=== PATIENT | female | born 1940 | race Caucasian/White ===

== ENCOUNTER 2021-02-17 18:58 | Inpatient (IN) ==
--- NOTE | 2021-02-17 19:39 | Emergency Department Note ---
Impression & Plan Small bowel obstruction, Abdominal pain, Nausea & vomiting, Hypocalcemia ED Provider Note NAME: DAMIEN WESLEY AGE: 80 SEX: F : 1940 ARRIVES VIA: Walk-In INFORMANT: Patient, ED PROVIDER(S): Fotrunato De La Rosa MD Chief Complaint: Outpatient referral, abnormal CAT scan, abdominal HPI: Patient does present due to concern for the abnormal CAT scan completed in outpatient [facility] today. Patient's CAT scan showed interval development of small bowel dilatation proximal to lower ventral hernia consistent with partial SBO. Patient has had symptoms beginning since Wednesday with lower abdominal pain that has been rolling in and out. The patient states that it is fairly unchanged from prior. The patient denies any fevers or chills. The patient did have vomiting of the week but denies any blood in the vomit. The patient has not had a bowel movement approximate 3 days. Patient is a prior history of bowel obstruction and did require an NG. Patient does have prior history of cholecystectomy and hysterectomy. Patient is not taking anything for pain or nausea at home. Patient is vaccinated for Covid denies any alcohol tobacco or drug use. ROS: See HPI for pertinent positives and negatives. A total of 10 systems were reviewed and otherwise negative. Past medical history: See below Surgical history: See below Social history: See below Physical Exam: GENERAL: NAD, wearing glasses, wearing a mask, non-toxic. EYE EXAM: Normal conjunctiva. PERRL, no anisocoria and EOM's grossly intact w/o pain. NECK: Supple, no nuchal rigidity, no adenopathy, non-tender. No signs of meningismus. LUNGS: Clear to auscultation. Normal chest wall mechanics. HEART: NSR, no MRG. ABDOMEN: Abdomen soft, mild diffuse abdominal pain. Normo-active bowel sounds, no masses, no rebound or guarding. BACK: No CVA TTP. SKIN: No rashes and no bruising. UPPER EXTREMITIES: Upper extremities are grossly normal. LOWER EXTREMITIES: Grossly normal, no edema. NEURO EXAM: A&O x3, cranial nerves II-XII grossly intact, normal speech, moves all 4 extremities on command w/o issue. Differential diagnoses: Appendicitis, ovarian cyst, ovarian torsion, ectopic , TOA, PID, infections, diverticulitis, UTI, obstruction, mesenteric ischemia, aortic pathology, inflammatory bowel disease, renal colic, PUD, pancreatitis, biliary pathology, hernia, volvulus, constipation, as well as other pathologies. Course: Patient was seen and evaluated the bedside. Full history physical exam was performed. Imaging Studies: Outpatient CAT scan completed on 02/17/2021 at 1[facility]10 [facility] Impression: Interval dilatation of the small bowel proximal to the lower ventral hernia. This is consistent with a partial small bowel obstruction caused by ventral hernia. No other acute findings seen. Cardiac monitoring: An order was placed for continuous cardiac monitoring. The monitor shows a rate of 82 with sinus rhythm. MDM: Patient presents due to concern for abdominal pain. I did review the patient's CAT scan while the patient was still in triage. Blood work had already been ordered. Upon evaluation of the patient the patient was requesting pain and nausea medication. The patient has not vomited since yesterday. I did speak with the on-call general surgeon Dr. Bailey who is aware of the patient. I did s peak the on-call hospitalist and patient was admitted to the medicine service by Dr. Rincon. Past Med/Surg History Medical History Anxiety with depression Bowel obstruction Hyperlipidemia Hypertension Hypothyroidism (acquired) Surgical History H/O: hysterectomy Hx of cholecystectomy Social History Smoking Status: Never smoker Hx Alcohol Use: No Hx Substance Use: No Feels Safe at Home: Yes Immunizations: Vaccinated for COVID-19 Allergies Allergies Allergy/AdvReac Type Severity Reaction Status Date / Time No Known Allergies Allergy Verified 08/16/17 05:49 Home Meds Home Medications Medication Instructions Recorded Confirmed atorvastatin 10 mg tablet 10 mg PO DAILY 02/17/21 02/17/21 bupropion HCl 150 mg 24 hr tablet, 150 mg PO DAILY 02/17/21 02/17/21 extended release calcium carbonate 500 mg-vitamin 1 tab PO BID 02/17/21 02/17/21 D3 3.125 mcg (125 unit) tablet levothyroxine 75 mcg tablet 75 mcg PO DAILY 02/17/21 02/17/21 (Synthroid) lisinopril 10 mg tablet 10 mg PO DAILY 02/17/21 02/17/21 multivitamin 1 tab PO DAILY 02/17/21 02/17/21 multivitamin with minerals 1 tab PO DAILY 02/17/21 02/17/21 omega 0-irs-utg-fish oil 60 mg-90 1 cap PO BID 02/17/21 02/17/21 mg-500 mg capsule (Fish Oil) vitamins A,C,M-pnga-sujaoq 14,320 1 cap PO DAILY 02/17/21 02/17/21 unit-226 mg-200 unit capsule (PreserVision AREDS) zinc 50 mg tablet 50 mg PO DAILY 02/17/21 02/17/21 Results & Data (ED) Vital Signs Vital Signs - 24 hr 02/17/21 19:00 Temperature 36.4 C L Temperature Source Temporal Artery Scan Pulse Rate 79 Respiratory Rate 16 Blood Pressure 182/78 H Blood Pressure Mean 112 Blood Pressure Position Sitting Pulse Oximetry 97 Oxygen Delivery Method Room Air Sepsis Recent Fever Within 48 Hours No Sepsis New/Unexplained Change in Mental Status No Sepsis Action Taken by Nursing No Action Required Home Medications Current Medication List: was personally reviewed by me Laboratory Data Attestation: I reviewed the patient's lab results. Result diagrams: 02/17/21 20:05 02/17/21 20:05 Lab Results 02/17/21 02/17/21 02/17/21 Range/Units 20:05 20:05 20:05 WBC 9.12 (4.8-10.8) K/uL RBC 4.25 (4.2-5.4) M/uL Hgb 12.7 (12.0-16.0) g/dL Hct 38.9 (37-47) % MCV 91.5 (80-100) fL MCH 29.9 (25-34) pg MCHC 32.6 (32-36) g/dL RDW Std Deviation 45.6 (36.4-46.3) fL RDW Coeff of Lonnie 13.7 (11.5-14.5) % Plt Count 268 (130-400) K/uL MPV 9.3 (7.4-10.4) fL Immature Gran % (Auto) 0.2 % Neut % (Auto) 67.0 % Lymph % (Auto) 24.1 % Dickenson % (Auto) 7.2 % Eos % (Auto) 1.4 % Baso % (Auto) 0.1 % Neut # (Auto) 6.10 (1.4-6.5) K/uL Lymph # (Auto) 2.20 (1.2-3.4) K/uL Dickenson # (Auto) 0.66 H (0.11-0.59) K/uL Eos # (Auto) 0.13 (0-0.5) K/uL Baso # (Auto) 0.01 (0-0.2) K/uL Immature Gran # (Auto) 0.02 (0.00-0.02) K/uL Sodium 138 (136-145) mmol/L Potassium 4.3 (3.5-5.1) mmol/L Chloride 105 (98-107) mmol/L Carbon Dioxide 26 (21-32) mmol/L Anion Gap 6.0 (3-11) BUN 18 (7-18) mg/dl Creatinine 0.91 (0.6-1.2) mg/dl Est Cr Clr Drug Dosing 48.1 ml/min Est GFR ( Amer) 69.5 ml/min Est GFR (Non-Af Amer) 60.0 ml/min BUN/Creatinine Ratio 19.5 (10-20) Glucose 112 H (70-99) mg/dl Calcium 8.2 L (8.5-10.1) mg/dl Total Bilirubin 0.6 (0.2-1) mg/dl AST 32 (15-37) U/L ALT 69 (12-78) Alkaline Phosphatase 100 (45-117) U/L Total Protein 7.8 (6.4-8.2) gm/dl Albumin 3.5 (3.4-5.0) gm/dl Globulin 4.3 H (2.5-4.0) gm/dl Albumin/Globulin Ratio 0.8 L (0.9-2) Lipase 74 (73-393) U/L SARS-CoV-2, RNA, NAAT NEGATIVE (NEGATIVE) Administered Medications Discontinued Medications Sodium Chloride (Nss 1000ml) 500 mls @ 999 mls/hr IV .Q31M ONE Stop: 02/17/21 21:02 Last Admin: 02/17/21 20:51 Dose: 999 mls/hr Documented by: [id number] Morphine Sulfate (Morphine Sulfate 4 Mg/Ml 1 Ml Carp\Vial) 4 mg IV NOW STA Stop: 02/17/21 20:33 Last Admin: 02/17/21 20:50 Dose: 4 mg Documented by: [id number] Ondansetron HCl (Ondansetron Inj 2 Mg/Ml 2 Ml Vial) 4 mg IV NOW STA Stop: 02/17/21 20:33 Last Admin: 02/17/21 20:51 Dose: 4 mg Documented by: [id number] Discharge Plan Visit Data Chief Complaint: Abdominal Pain Stated Complaint: BOWEL OBSTRUCTION, SEVERE ABD PAIN, DR REFFERED ED Provider: Fortunato De La Rosa Discharge Problem: Small bowel obstruction, Abdominal pain, Nausea & vomiting, Hypocalcemia Patient Disposition: Admitted As Inpatient Forms Stand Alone Forms: [facility] Prescriptions Prescriptions: No Action multivitamin Tablet 1 tab PO DAILY RF: 0 atorvastatin 10 mg tablet 10 mg PO DAILY RF: 0 levothyroxine [Synthroid] 75 mcg tablet 75 mcg PO DAILY RF: 0 lisinopril 10 mg tablet 10 mg PO DAILY RF: 0 zinc 50 mg Tablet 50 mg PO DAILY RF: 0 Potassium Plus Tablet 1 tab PO DAILY RF: 0 bupropion HCl 150 mg tablet extended release 24 hr 150 mg PO DAILY RF: 0 PreserVision AREDS 14,320-226-200 grdd-oo-ogyx Capsule 1 cap PO DAILY RF: 0 calcium carbonate-vitamin D3 [Calcium 500 + D (D3)] 500 mg-3.125 mcg (125 unit) Tablet 1 tab PO BID RF: 0 omega 3-qlf-nkg-fish oil [Fish Oil] 60-90-500 mg Capsule 1 cap PO BID RF: 0 Referrals Referrals: Thanh Garrett MD [Outside Practitioners] -
[2021-02-17 20:24] LABS: Basophils # (auto) 0.01 K/uL (0-0.2); Basophils % (auto) 0.1 %; Eosinophils # (auto) 0.13 K/uL (0-0.5); Eosinophils % (auto) 1.4 %; Hematocrit (blood only) 38.9 % (37-47); Hemoglobin 12.7 g/dL (12.0-16.0); Immature Granulocytes # (auto) 0.02 K/uL (0.00-0.02); Immature Granulocytes % (auto) 0.2 %; Lymphocytes % (auto) 24.1 %; Mean Corpuscular Hemoglobin 29.9 pg (25-34); Mean Corpuscular Hgb Conc 32.6 g/dL (32-36); Mean Corpuscular Volume 91.5 fL (80-100); Mean Platelet Volume 9.3 fL (7.4-10.4); Monocytes # (auto) 0.66 K/uL (0.11-0.59); Monocytes % (auto) 7.2 %; Platelet Count 268 K/uL (130-400); RDW Coefficient of Variation 13.7 % (11.5-14.5); RDW Standard Deviation 45.6 fL (36.4-46.3); Red Blood Count 4.25 M/uL (4.2-5.4); White Blood Count 9.12 K/uL (4.8-10.8)
[2021-02-17] MEDS ORDERED: SODIUM CHLORIDE 0.9% 1000ML 500 ML IV ONE (20:32)
[2021-02-17] MEDS ORDERED: MoRPHine SULFATE 4 MG/ML 1 ML CARP\\VIAL IV STA ×2 (20:32→22:43)
[2021-02-17] MEDS ORDERED: ONDANSETRON INJ 2 MG/ML 2 ML VIAL IV STA (20:32)
[2021-02-17 20:41] LABS: Albumin Level 3.5 gm/dl (3.4-5.0); BUN Creatinine Ratio 19.5 (10-20); Calcium 8.2 mg/dl (8.5-10.1); Creatinine Clr Calc Pharmacy 48.1 ml/min; Est GFR (African American) 69.5 ml/min; Potassium 4.3 mmol/L (3.5-5.1)
[2021-02-17 20:44] LABS: Albumin Globulin Ratio 0.8 (0.9-2); Bilirubin,Total 0.6 mg/dl (0.2-1); Globulin 4.3 gm/dl (2.5-4.0); Total Protein 7.8 gm/dl (6.4-8.2)
[2021-02-17] MEDS ORDERED: hydrALAZINE HCL 20 MG/ML VIAL IV PRN (21:15)
--- NOTE | 2021-02-17 21:17 | History & Physical Report ---
Date of Service February 17, 2021 Assessment & Plan (1) Ventral hernia with bowel obstruction: Plan: Ventral hernia with bowel obstruction/history of previous SBO- NPO Zosyn 3.375 mg IV every 8 hours Zofran 4 mg IV every 6 hours as needed Famotidine 20 mg IV every 12 hours Acetaminophen 1 g IV every 8 hours as needed mild pain or fever Toradol 15 mg IV every 6 hours as needed moderate pain NSS + KCl 20 mEq at 80 mils per hour General surgery has been consulted by the ED and is aware the patient (2) Small bowel obstruction: Plan: See above (3) Abdominal pain: Plan: Primary presenting symptoms of SBO with abdominal pain and nausea and vomiting (4) Nausea & vomiting: Plan: See above (5) Hyperlipidemia: Plan: Hold atorvastatin (6) Anxiety with depression: Plan: Hold bupropion (7) Hypothyroidism (acquired): Plan: Hold levothyroxine (8) Hypertension: Plan: Hold lisinopril History of Present Illness Chief Complaint: The patient presents to the emergency department with abdominal pain, nausea and vomiting over the past 3 days, similar to previous SBO Primary Care Provider: Maria Del Rosario Chery The patient is a 80-year-old female with past medical history including small bowel obstruction, hyperlipidemia, anxiety with depression, hypothyroidism, and hypertension. She presents to the emergency department after 3 days of abdominal pain, nausea, vomiting. Her last bowel movement was 3 days ago. She reports her symptoms are similar to her previous small bowel obstruction that occurred about 3 to 4 years ago. Patient had a CT performed at [facility] earlier today, which showed a small bowel obstruction proximal to a lower ventral hernia consistent with partial SBO. Allergies Allergy/AdvReac Type Severity Reaction Status Date / Time No Known Allergies Allergy Verified 08/16/17 05:49 Home Medications Medication Instructions Recorded Confirmed Type atorvastatin 10 mg tablet 10 mg PO DAILY 02/17/21 02/17/21 History bupropion HCl 150 mg 24 hr tablet, 150 mg PO DAILY 02/17/21 02/17/21 History extended release calcium carbonate 500 mg-vitamin 1 tab PO BID 02/17/21 02/17/21 History D3 3.125 mcg (125 unit) tablet levothyroxine 75 mcg tablet 75 mcg PO DAILY 02/17/21 02/17/21 History (Synthroid) lisinopril 10 mg tablet 10 mg PO DAILY 02/17/21 02/17/21 History multivitamin 1 tab PO DAILY 02/17/21 02/17/21 History multivitamin with minerals 1 tab PO DAILY 02/17/21 02/17/21 History omega 0-clv-ywu-fish oil 60 mg-90 1 cap PO BID 02/17/21 02/17/21 History mg-500 mg capsule (Fish Oil) vitamins A,C,L-qpot-wdqjgz 14,320 1 cap PO DAILY 02/17/21 02/17/21 History unit-226 mg-200 unit capsule (PreserVision AREDS) zinc 50 mg tablet 50 mg PO DAILY 02/17/21 02/17/21 History Past Med/Surg History Medical History (Updated 02/17/21 @ 22:16 by Allen Chanel MD) Anxiety with depression Bowel obstruction Hyperlipidemia Hypertension Hypothyroidism (acquired) Surgical History H/O: hysterectomy Hx of cholecystectomy Social History (Updated 02/17/21 @ 20:40 by Fortunato De La Rosa MD) Smoking Status: Never smoker Hx Alcohol Use: No Hx Substance Use: No Feels Safe at Home: Yes Review of Systems Review of Systems: The patient denies chest pain, palpitations, shortness of breath, dyspnea on exertion, cough, lower extremity swelling, sore throat, fevers, chills, sweats, blood in urine or stool, dysuria, urinary frequency or urgency, lightheadedness, dizziness, headache, memory loss, loss of consciousness, rash, abnormal bruising or bleeding, imbalance, focal weakness, numbness or tingling in arms or legs, generalized arthralgias or myalgias, back or neck pain, or night sweats. The review of systems is otherwise negative other than for that already noted above, and at least 10 systems have been reviewed. Physical Exam Physical Exam: The patient is awake, alert and oriented 3, well developed and well nourished, normocephalic and atraumatic, lying in bed and in no acute distress after receiving IV morphine. HEENT--PERRL, EOMI, mucous membranes and oropharynx mildly dry. Neck--supple. No JVD. No bruits. Thyroid normal, trachea midline, no adenopathy. Heart--normal S1 and S2. No murmurs, rubs or gallops. Lungs--clear bilaterally, no respiratory distress, no accessory muscle use. Abdomen--normal bowel sounds. Nontender. Mildly distended. Extremities--no cyanosis or clubbing. No edema. Dermatologic--normal skin turgor, normal color, no abnormal lymph nodes, no rash. Neurologic--cranial nerves II through XII grossly intact. Rheumatologic--limited exam Psychiatric--normal affect. Results & Data Results & Data ([facility]) Vital Signs (Past 12 Hours) Vital Signs Temp Pulse Resp BP Pulse Ox 02/17/21 19:00 36.4 C L 79 16 182/78 H 97 Laboratory Results Laboratory Results WBC 9.12 K/uL (4.8-10.8) 02/17/21 20:05 RBC 4.25 M/uL (4.2-5.4) 02/17/21 20:05 Hgb 12.7 g/dL (12.0-16.0) 02/17/21 20:05 Hct 38.9 % (37-47) 02/17/21 20:05 MCV 91.5 fL (80-100) 02/17/21 20:05 MCH 29.9 pg (25-34) 02/17/21 20:05 MCHC 32.6 g/dL (32-36) 02/17/21 20:05 RDW Std Deviation 45.6 fL (36.4-46.3) 02/17/21 20:05 RDW Coeff of Lonnie 13.7 % (11.5-14.5) 02/17/21 20:05 Plt Count 268 K/uL (130-400) 02/17/21 20:05 MPV 9.3 fL (7.4-10.4) 02/17/21 20:05 Immature Gran % (Auto) 0.2 % 02/17/21 20:05 Neut % (Auto) 67.0 % 02/17/21 20:05 Lymph % (Auto) 24.1 % 02/17/21 20:05 Mingo % (Auto) 7.2 % 02/17/21 20:05 Eos % (Auto) 1.4 % 02/17/21 20:05 Baso % (Auto) 0.1 % 02/17/21 20:05 Neut # (Auto) 6.10 K/uL (1.4-6.5) 02/17/21 20:05 Lymph # (Auto) 2.20 K/uL (1.2-3.4) 02/17/21 20:05 Mingo # (Auto) 0.66 K/uL (0.11-0.59) H 02/17/21 20:05 Eos # (Auto) 0.13 K/uL (0-0.5) 02/17/21 20:05 Baso # (Auto) 0.01 K/uL (0-0.2) 02/17/21 20:05 Immature Gran # (Auto) 0.02 K/uL (0.00-0.02) 02/17/21 20:05 Sodium 138 mmol/L (136-145) 02/17/21 20:05 Potassium 4.3 mmol/L (3.5-5.1) 02/17/21 20:05 Chloride 105 mmol/L (98-107) 02/17/21 20:05 Carbon Dioxide 26 mmol/L (21-32) 02/17/21 20:05 Anion Gap 6.0 (3-11) 02/17/21 20:05 BUN 18 mg/dl (7-18) 02/17/21 20:05 Creatinine 0.91 mg/dl (0.6-1.2) 02/17/21 20:05 Est Cr Clr Drug Dosing 48.1 ml/min 02/17/21 20:05 Est GFR ( Amer) 69.5 ml/min 02/17/21 20:05 Est GFR (Non-Af Amer) 60.0 ml/min 02/17/21 20:05 BUN/Creatinine Ratio 19.5 (10-20) 02/17/21 20:05 Glucose 112 mg/dl (70-99) H 02/17/21 20:05 Calcium 8.2 mg/dl (8.5-10.1) L 02/17/21 20:05 Total Bilirubin 0.6 mg/dl (0.2-1) 02/17/21 20:05 AST 32 U/L (15-37) 02/17/21 20:05 ALT 69 (12-78) 02/17/21 20:05 Alkaline Phosphatase 100 U/L (45-117) 02/17/21 20:05 Total Protein 7.8 gm/dl (6.4-8.2) 02/17/21 20:05 Albumin 3.5 gm/dl (3.4-5.0) 02/17/21 20:05 Globulin 4.3 gm/dl (2.5-4.0) H 02/17/21 20:05 Albumin/Globulin Ratio 0.8 (0.9-2) L 02/17/21 20:05 Lipase 74 U/L (73-393) 02/17/21 20:05 SARS-CoV-2, RNA, NAAT NEGATIVE (NEGATIVE) 02/17/21 20:05 Code Status & VTE Plan Code Status Full code VTE Prophylaxis Plan VTE Prophylaxis will be ordered: Yes PG Care Time/CCT Total # of Minutes Spent Total Time Spent with Patient: Total time spent is greater than 50% in coordination of care (as documented) at patient's floor/unit and/or counseling patient: Coding Level of Care Code 14665 Initial Inpt Care Lvl 3 Diagnoses Ventral hernia with bowel obstruction K43.6 Small bowel obstruction K56.609 Abdominal pain R10.9 Nausea & vomiting R11.2 Hyperlipidemia E78.5 Anxiety with depression F41.8 Hypothyroidism (acquired) E03.9 Hypertension I10
--- NOTE | 2021-02-17 21:34 | Surgery Consultation ---
Date of Consultation February 17, 2021 Assessment & Plan (1) Small bowel obstruction: pt is a 80 year-old female who presents to ER with 3 days history abdominal pain with nausea and vomiting, IMP: SBO, ventral hernia, plan, I recommend to do open repair ventral hernia possible with mesh or laparotomy, D/w benefits, risks and alternatives of the surgery, the risks- infection, bleeding, injury other organs, hernia recurrence, complications relate to mesh, seroma, NH, DVT, stroke, , pt and her granddaughter understood, they agree with surgery, pt signed informed consent, I answered all questions, agree with hospitalist team admit pt to hospital conservative treatment, NPO, IV fluid, control pain, pt will go to OR in morning, (2) Ventral hernia with bowel obstruction: see above History of Present Illness Reason for Consultation: SBO, History of Present Illness Chief Complaint: Outpatient referral, abnormal CAT scan, abdominal HPI: Patient does present due to concern for the abnormal CAT scan completed in outpatient [facility] today. Patient's CAT scan showed interval development of small bowel dilatation proximal to lower ventral hernia consistent with partial SBO. Patient has had symptoms beginning since Wednesday with lower abdominal pain that has been rolling in and out. The patient states that it is fairly unchanged from prior. The patient denies any fevers or chills. The patient did have vomiting of the week but denies any blood in the vomit. The patient has not had a bowel movement approximate 3 days. Patient is a prior history of bowel obstruction and did require an NG. Patient does have prior history of cholecystectomy and hysterectomy. Patient is not taking anything for pain or nausea at home. Patient is vaccinated for Covid denies any alcohol tobacco or drug use. I ( Luly Bailey MD ) got a call for consult SBO, and ventral hernia, I reviewed pt's H/P, labs, with pt, pt developed ventral hernia about 2 years ago, the hernia is getting bigger, ROS: See HPI for pertinent positives and negatives. A total of 10 systems were reviewed and otherwise negative. Past medical history: See below Surgical history: See below Social history: See below Differential diagnoses: Appendicitis, ovarian cyst, ovarian torsion, ectopic , TOA, PID, infections, diverticulitis, UTI, obstruction, mesenteric ischemia, aortic pathology, inflammatory bowel disease, renal colic, PUD, pancreatitis, biliary pathology, hernia, volvulus, constipation, as well as other pathologies. Course: Patient was seen and evaluated the bedside. Full history physical exam was performed. Imaging Studies: Outpatient CAT [facility] Imp[facility]: Interval dilatation of the small bowel proximal to the lower ventral hernia. This is consistent with a partial small bowel obstruction caused by ventral hernia. No other acute findings seen. Cardiac monitoring: An order was placed for continuous cardiac monitoring. The monitor shows a rate of 82 with sinus rhythm. MDM: Patient presents due to concern for abdominal pain. I did review the patient's CAT scan while the patient was still in triage. Blood work had already been ordered. Upon evaluation of the patient the patient was requesting pain and nausea medication. The patient has not vomited since yesterday. I did speak with the on-call general surgeon Dr. Bailey who is aware of the patient. I did speak the on-call hospitalist and patient was admitted to the medicine service. Past Med/Surg History Medical History Bowel obstruction H/O: HTN (hypertension) Hypothyroid Surgical History H/O: hysterectomy Hx of cholecystectomy Social History(Updated 02/17/21 @ 20:40 by Fortunato De La Rosa MD) Smoking Status: Never smoker Hx Alcohol Use: No Hx Substance Use: No Feels Safe at Home: Yes Immunizations: Vaccinated for COVID-19 Allergies Allergies Allergy/AdvReac Type Severity Reaction Status Date / Time No Known Allergies Allergy Verified 08/16/17 05:49 Home Meds Home Medications Medication Instructions Recorded Confirmed Fish Oil (Rodney-3) 1 cap PO QAM #0 07/15/10 Propranolol (Inderal) 20 mg PO BID #0 07/15/10 CALCIUM 1 tab PO BID #0 08/04/17 LEVOTHYROXINE SODIUM (SYNTHROID) 75 mcg PO QAM #0 tab 08/04/17 LISINOPRIL (PRINIVIL) 5 mg PO QAM #0 tab 08/04/17 Multiple Vitamins W/ Minerals 1 tab PO QAM #0 08/04/17 (Centrum Silver 50+Women) F POTASSIUM 1 tab PO QAM #0 08/04/17 Previous Rx's Medication Instructions Recorded ACETAMINOPHEN (SB NON-ASPIRIN 1,000 mg PO Q8H 14 Days #84 tab 08/18/17 EXTRA STRE) Aspirin (Aspirin EC Low Dose) 81 mg PO BID 30 Days #0 08/18/17 Celecoxib (Celebrex) 200 mg PO BID #60 cap 08/18/17 ONDANSETRON HCL (ZOFRAN) 8 mg PO TID PRN #20 tab 08/18/17 Oxycodone HCl 5 - 10 mg PO Q4H PRN #60 tab 08/18/17 Senna (Senokot) 17.2 mg PO HS #30 tab 08/18/17 Results & Data (ED) Vital Signs Vital Signs - 24 hr 02/17/21 19:00 Temperature 36.4 C L Temperature Source Temporal Artery Scan Pulse Rate 79 Respiratory Rate 16 Blood Pressure 182/78 H Blood Pressure Mean 112 Blood Pressure Position Sitting Pulse Oximetry 97 Oxygen Delivery Method Room Air Sepsis Recent Fever Within 48 Hours No Sepsis New/Unexplained Change in Mental Status No Sepsis Action Taken by Nursing No Action Required Home Medications Current Medication List: was personally reviewed by me Laboratory Data Attestation: I reviewed the patient's lab results. Result diagrams: 02/17/21 20:05 02/17/21 20:05 Lab Results 02/17/21 02/17/21 02/17/21 Range/Units 20:05 20:05 20:05 WBC 9.12 (4.8-10.8) K/uL RBC 4.25 (4.2-5.4) M/uL Hgb 12.7 (12.0-16.0) g/dL Hct 38.9 (37-47) % MCV 91.5 (80-100) fL MCH 29.9 (25-34) pg MCHC 32.6 (32-36) g/dL RDW Std Deviation 45.6 (36.4-46.3) fL RDW Coeff of VarB 13.7 (11.5-14.5) % Plt Count 268 (130-400) K/uL MPV 9.3 (7.4-10.4) fL Immature Gran % (Auto) 0.2 % Neut % (Auto) 67.0 % Lymph % (Auto) 24.1 % [place] % (Auto) 7.2 % Eos % (Auto) 1.4 % Baso % (Auto) 0.1 % Neut # (Auto) 6.10 (1.4-6.5) K/uL Lymph # (Auto) 2.20 (1.2-3.4) K/uL [place] # (Auto) 0.66 H (0.11-0.59) K/uL Eos # (Auto) 0.13 (0-0.5) K/uL Baso # (Auto) 0.01 (0-0.2) K/uL Immature Gran # (Auto) 0.02 (0.00-0.02) K/uL Sodium 138 (136-145) mmol/L Potassium 4.3 (3.5-5.1) mmol/L Chloride 105 (98-107) mmol/L Carbon Dioxide 26 (21-32) mmol/L Anion Gap 6.0 (3-11) BUN 18 (7-18) mg/dl Creatinine 0.91 (0.6-1.2) mg/dl Est Cr Clr Drug Dosing 48.1 ml/min Est GFR ( Amer) 69.5 ml/min Est GFR (Non-Af Amer) 60.0 ml/min BUN/Creatinine Ratio 19.5 (10-20) Glucose 112 H (70-99) mg/dl Calcium 8.2 L (8.5-10.1) mg/dl Total Bilirubin 0.6 (0.2-1) mg/dl AST 32 (15-37) U/L ALT 69 (12-78) Alkaline Phosphatase 100 (45-117) U/L Total Protein 7.8 (6.4-8.2) gm/dl Albumin 3.5 (3.4-5.0) gm/dl Globulin 4.3 H (2.5-4.0) gm/dl Albumin/Globulin Ratio 0.8 L (0.9-2) Lipase 74 (73-393) U/L SARS-CoV-2, RNA, NAAT NEGATIVE (NEGATIVE) Allergies Allergy/AdvReac Type Severity Reaction Status Date / Time No Known Allergies Allergy Verified 08/16/17 05:49 Home Medications Medication Instructions Recorded Confirmed Type atorvastatin 10 mg tablet 10 mg PO DAILY 02/17/21 02/17/21 History bupropion HCl 150 mg 24 hr tablet, 150 mg PO DAILY 02/17/21 02/17/21 History extended release calcium carbonate 500 mg-vitamin 1 tab PO BID 02/17/21 02/17/21 History D3 3.125 mcg (125 unit) tablet levothyroxine 75 mcg tablet 75 mcg PO DAILY 02/17/21 02/17/21 History (Synthroid) lisinopril 10 mg tablet 10 mg PO DAILY 02/17/21 02/17/21 History multivitamin 1 tab PO DAILY 02/17/21 02/17/21 History multivitamin with minerals 1 tab PO DAILY 02/17/21 02/17/21 History omega 7-bva-mwr-fish oil 60 mg-90 1 cap PO BID 02/17/21 02/17/21 History mg-500 mg capsule (Fish Oil) vitamins A,C,Z-gltn-vucklj 14,320 1 cap PO DAILY 02/17/21 02/17/21 History unit-226 mg-200 unit capsule (PreserVision AREDS) zinc 50 mg tablet 50 mg PO DAILY 02/17/21 02/17/21 History Patient History Medical History Bowel obstruction H/O: HTN (hypertension) Hypothyroid Surgical History H/O: hysterectomy Hx of cholecystectomy Social History (Updated 02/17/21 @ 20:40 by Fortunato De La Rosa MD) Smoking Status: Never smoker Hx Alcohol Use: No Hx Substance Use: No Feels Safe at Home: Yes Physical Exam Constitutional: WD/WN, vitals as above Eyes: PERRL, conjunctivae normal, anicteric sclerae ENMT: external ear and nose normal, oropharynx normal Neck: trachea midline, no thyromegaly Respiratory: normal respiratory effort, lungs clear to auscultation Cardiovascular: RRR, no murmur, no edema Gastrointestinal (Abdomen): soft, tenderness at ventral hernia site at just below umbilical area, partial reducible, no rebound pain, middle line scar, Bs +. no distend, Musculoskeletal: no cyanosis or clubbing, extremities motor strength 5/5 Neurologic: patellar DTR's 2+ bilat, sensation intact Psychiatric: A+Ox3, euthymic affect Results & Data ([place]) Vital Signs (Past 12 Hours) Vital Signs Temp Pulse Resp BP Pulse Ox 02/17/21 19:00 36.4 C L 79 16 182/78 H 97
[2021-02-17] MEDS ORDERED: FAMOTIDINE 20MG/5ML IV PUSH IV STA (22:44)
[2021-02-17] MEDS ORDERED: ACETAMINOPHEN 1,000 MG/100 ML VIAL IV PRN (22:44)
[2021-02-17] MEDS: KETOROLAC TROMETHAMINE 15 MG/ML VIAL IV PRN (22:59)
[2021-02-18] MEDS ORDERED: ACETAMINOPHEN 1,000 MG/100 ML VIAL IV PRN (00:55)
[2021-02-18] MEDS ORDERED: LORazepam 0.5 MG/1 ML VIAL IV PRN (00:55)
[2021-02-18] MEDS ORDERED: PIPERACILL/TAZOBAC CONSULT ACTIVE PRN (00:55)
[2021-02-18] MEDS ORDERED: KETOROLAC TROMETHAMINE 15 MG/ML VIAL IV PRN (00:55)
[2021-02-18] MEDS: ONDANSETRON INJ 2 MG/ML 2 ML VIAL IV PRN ×2 (01:17→13:37)
[2021-02-18] MEDS ORDERED: PIPERACILLIN/TAZOBACTAM 4.5 GM in DEXTROSE 5% 100 ML IV ONE (01:30)
[2021-02-18] MEDS: NSS + 20MEQ KCL 20 MEQ/1,000 ML BAG IV SCH ×2 (01:37→13:48)
[2021-02-18] MEDS ORDERED: PIPERACILLIN/TAZOBACTAM 3.375 GM in DEXTROSE 5% 100 ML IV SCH (06:00)
--- NOTE | 2021-02-18 06:44 | Anesthesiology Consultation ---
Date of Service February 18, 2021 Assessment & Plan Chart Review Chart Review: Acceptable Risk for Surgery and Patient NOT seen in Pre Admission Testing History Surgery Operation Date: 02/18/21 11:40 Proposed Procedures p Ventral Hernia Repair - Luly Bailey MD Height/Weight Height: 5 ft 2 in Weight: 76 kg Allergies Allergy/AdvReac Type Severity Reaction Status Date / Time No Known Allergies Allergy Verified 08/16/17 05:49 Medications Home Medications Medication Instructions Recorded Confirmed Last Taken atorvastatin 10 mg tablet 10 mg PO DAILY 02/17/21 02/17/21 Unknown bupropion HCl 150 mg 24 hr tablet, 150 mg PO DAILY 02/17/21 02/17/21 Unknown extended release calcium carbonate 500 mg-vitamin 1 tab PO BID 02/17/21 02/17/21 Unknown D3 3.125 mcg (125 unit) tablet levothyroxine 75 mcg tablet 75 mcg PO DAILY 02/17/21 02/17/21 Unknown (Synthroid) lisinopril 10 mg tablet 10 mg PO DAILY 02/17/21 02/17/21 Unknown multivitamin 1 tab PO DAILY 02/17/21 02/17/21 Unknown multivitamin with minerals 1 tab PO DAILY 02/17/21 02/17/21 Unknown omega 1-naz-zsn-fish oil 60 mg-90 1 cap PO BID 02/17/21 02/17/21 Unknown mg-500 mg capsule (Fish Oil) vitamins A,C,V-urub-cyywtt 14,320 1 cap PO DAILY 02/17/21 02/17/21 Unknown unit-226 mg-200 unit capsule (PreserVision AREDS) zinc 50 mg tablet 50 mg PO DAILY 02/17/21 02/17/21 Unknown Active Medications Generic Name Dose Route Start Last Admin Trade Name Freq PRN Reason Stop Dose Admin Acetaminophen 1,000 mg in 100 mls @ 400 mls/hr 02/17/21 22:44 02/17/21 23:13 Ofirmev IV 02/20/21 22:43 Infused Q8H PRN Infusion Pain or Fever Piperacillin Sod/Tazobactam 115 mls @ 28.75 mls/hr 02/18/21 06:00 02/18/21 06:01 Sod 3.375 gm/ Dextrose IV 02/28/21 05:59 28.8 mls/hr Q8H CIARA Administration Protocol Potassium Chloride/Sodium Chloride 20 meq in 1,000 mls @ 80 mls/hr 02/18/21 01:30 02/18/21 02:50 Normal Saline W/20 Meq Kcl IV 03/20/21 01:29 80 mls/hr .[id number] CIARA Infusion Ketorolac Tromethamine 15 mg 02/17/21 22:44 02/17/21 22:59 Ketorolac Tromethamine 15 Mg/Ml Vial IV 02/22/21 22:43 15 mg Q6H PRN Administration Mild Pain Ondansetron HCl 4 mg 02/18/21 00:55 02/18/21 01:17 Ondansetron Inj 2 Mg/Ml 2 Ml Vial IV 03/20/21 00:54 4 mg Q6H PRN Administration Nausea Past Medical History Medical History Anxiety with depression Bowel obstruction Hyperlipidemia Hypertension Hypothyroidism (acquired) Past Surgical History Surgical History H/O: hysterectomy Hx of cholecystectomy Social History Smoking Status: Never smoker Hx Alcohol Use: No Hx Substance Use: No Physical Exam Vital Signs Last Vital Signs Temp 36.7 C 02/18/21 01:30 Pulse 94 H 02/18/21 01:30 Resp 18 02/18/21 01:30 BP 146/81 H 02/18/21 01:30 Pulse Ox 97 02/18/21 01:30 Testing Laboratory Results 02/17/21 20:05 02/17/21 20:05
[2021-02-18 07:57] LABS: Eosinophils # (auto) 0.09 K/uL (0-0.5); Eosinophils % (auto) 1.8 %; Hematocrit (blood only) 38.3 % (37-47); Hemoglobin 12.3 g/dL (12.0-16.0); Immature Granulocytes # (auto) 0.01 K/uL (0.00-0.02); Immature Granulocytes % (auto) 0.2 %; Lymphocytes # (auto) 0.66 K/uL (1.2-3.4); Lymphocytes % (auto) 13.5 %; Mean Corpuscular Hemoglobin 29.6 pg (25-34); Mean Corpuscular Hgb Conc 32.1 g/dL (32-36); Mean Corpuscular Volume 92.3 fL (80-100); Mean Platelet Volume 9.2 fL (7.4-10.4); Monocytes # (auto) 0.43 K/uL (0.11-0.59); Monocytes % (auto) 8.8 %; Neutrophils # (auto) 3.69 K/uL (1.4-6.5); Neutrophils % (auto) 75.7 %; Platelet Count 222 K/uL (130-400); RDW Coefficient of Variation 13.8 % (11.5-14.5); RDW Standard Deviation 47.2 fL (36.4-46.3); Red Blood Count 4.15 M/uL (4.2-5.4); White Blood Count 4.88 K/uL (4.8-10.8)
[2021-02-18 08:36] LABS: Albumin Level 2.9 gm/dl (3.4-5.0); BUN Creatinine Ratio 20.9 (10-20); Calcium 8.4 mg/dl (8.5-10.1); Est GFR (African American) 62.8 ml/min; Est GFR (Non-African American) 54.2 ml/min; Potassium 4.4 mmol/L (3.5-5.1)
[2021-02-18 08:48] LABS: Albumin Globulin Ratio 0.7 (0.9-2); Globulin 4.1 gm/dl (2.5-4.0)
[2021-02-18 08:50] LABS: Bilirubin,Total 1.5 mg/dl (0.2-1)
[2021-02-18] MEDS ORDERED: FAMOTIDINE 20 MG in SYRINGE 3 ML IV SCH (09:00)
--- NOTE | 2021-02-18 09:44 | History & Physical Bridge Note ---
Date of Service February 18, 2021 History & Physical Bridge Note I have examined the patient, reviewed the History & Physical and in the interval since the performance of the History & Physical I have noted the following changes of clinical significance: no changes noted
[2021-02-18] MEDS ORDERED: ceFAZolin 2000MG 2,000 MG/15 ML SYR IV STA (09:51)
[2021-02-18] MEDS ORDERED: fentaNYL citrate 100 MCG/2 ML VIAL ONE (10:25)
[2021-02-18] MEDS ORDERED: DEXAMETHASONE SOD INJ 4 MG/ML VIAL ONE (10:26)
[2021-02-18] MEDS ORDERED: ONDANSETRON INJ 2 MG/ML 2 ML VIAL ONE (10:26)
[2021-02-18] MEDS ORDERED: PROPOFOL IV EMULSION 10 MG/ML 20 ML VIAL IV ONE (10:26)
[2021-02-18] MEDS ORDERED: LIDOCAINE 2% 2 ML VIAL/AMP(20MG/ML) INFIL ONE (10:26)
[2021-02-18] MEDS ORDERED: LIDOCAINE 1% LOCAL 20 ML VIAL ONE (10:34)
[2021-02-18] MEDS ORDERED: BUPIVACAINE 0.5 % 5 MG/1 ML MPF 30ML VIAL ONE (10:34)
[2021-02-18] MEDS ORDERED: BACITRACIN OINT 15 GM TUBE ONE (10:37)
[2021-02-18] MEDS ORDERED: ATROPINE SULFATE 0.1 MG/ML 10ML SYR IV PRN (10:44)
[2021-02-18] MEDS ORDERED: ePHEDrine sulfate 50 MG/ML AMP IV PRN (10:44)
[2021-02-18] MEDS ORDERED: ONDANSETRON INJ 2 MG/ML 2 ML VIAL IV PRN (10:44)
[2021-02-18] MEDS ORDERED: HYDROmorphone INJ 2 MG/ML SYR/VIAL IV PRN (10:44)
[2021-02-18] MEDS ORDERED: fentaNYL citrate 100 MCG/2 ML VIAL IV PRN (10:44)
[2021-02-18] MEDS ORDERED: KETAMINE 50 MG/5 ML SYRINGE ONE (11:00)
[2021-02-18] MEDS ORDERED: ROCURONIUM BROMIDE 10 MG/ML 5 ML VIAL IV ONE (11:59)
[2021-02-18] MEDS ORDERED: ePHEDrine sulfate 50 MG/ML SYR ONE (11:59)
[2021-02-18] MEDS ORDERED: NEOSTIGMINE METHYLSULFATE 1 MG/ML 10ML VIAL ONE (12:06)
[2021-02-18] MEDS ORDERED: GLYCOPYRROLATE 0.2 MG/ML VIAL ONE (12:06)
--- NOTE | 2021-02-18 12:13 | Post Operative Brief Note ---
Immediate Post Op Note v1 Date of Surgery February 18, 2021 Pre & Post Diagnosis Operation Date: 02/18/21 11:40 Pre-Op Diagnosis: Ventral Hernia, small bowel obstruction Post-Op Diagnosis: Ventral Hernia, small bowel obstruction I identified the patient and participated in the time-out.: Yes Procedure Operation Date: 02/18/21 11:40 Actual Procedures p Ventral Hernia Repair with Mesh(Not Applicable) - Luly Bailey MD Surgeon Luly Bailey MD Natural Resource Officer ELEANOR Marlow Estimated Blood Loss 10 Findings Consistent with Post-Op Diagnosis 2 ventral hernia, size about 2x2cm, and 3x3cm, Fluids 600ml Specimens hernia sac Drains Borrero Catheter Anesthesia Type General Complications none Disposition Accompanied Patient To Recovery: Yes
--- NOTE | 2021-02-18 12:46 | Anesthesiology Progress Note ---
Date of Service February 18, 2021 Anesthesia Post Procedure Vital Signs Vital Signs: Temp Pulse Pulse Resp BP BP BP 02/18/21 12:40 80 16 127/67 02/18/21 12:30 80 18 133/65 02/18/21 12:20 36.6 C 78 18 140/65 02/18/21 10:28 36.9 C 74 18 132/68 02/18/21 10:14 36.7 C 75 18 131/75 02/18/21 07:00 36.7 C 80 18 113/70 02/18/21 01:30 36.7 C 94 H 18 146/81 H 02/17/21 23:27 81 16 144/57 H 02/17/21 19:00 36.4 C L 79 16 182/78 H Pulse Ox 02/18/21 12:40 99 02/18/21 12:30 99 02/18/21 12:20 95 02/18/21 10:28 95 02/18/21 10:14 98 02/18/21 07:00 96 02/18/21 01:30 97 02/17/21 23:27 99 02/17/21 19:00 97 Pain Intensity Abdomen: Pain Intensity: 3 Transfer of Care Handoff Completed per policy Notes Mental Status: alert / awake / arousable and participated in evaluation Patient Amnestic to Procedure: Yes Nausea / Vomiting: adequately controlled Pain: adequately controlled Airway Patency, RR, SpO2: stable & adequate BP & HR: stable & adequate Hydration State: stable & adequate Anesthetic Complications: no major complications apparent and Pt Satisfied with anesthetic care
[2021-02-18] MEDS ORDERED: oxyCODONE/ACETAMINOPHEN 5mg/325mg TAB PO PRN (13:06)
[2021-02-18] MEDS ORDERED: NON-FORMULARY MEDICATION (Multivitamin With Minerals Tablet) PO SCH (13:06)
[2021-02-18] MEDS ORDERED: NON-FORMULARY MEDICATION (Zinc 50 mg Tablet) PO SCH (13:06)
[2021-02-18] MEDS: KETOROLAC TROMETHAMINE 15 MG/ML VIAL IV PRN ×2 (13:36→22:09)
[2021-02-18] MEDS ORDERED: ATORVASTATIN 10 MG TAB PO SCH (14:00)
[2021-02-18] MEDS: lisinopril 10 MG TAB PO SCH (15:31)
[2021-02-18] MEDS: MULTIVITAMIN TAB PO SCH (15:32)
[2021-02-18] MEDS: buPROPion XL 150 MG TABCR PO SCH (15:32)
--- NOTE | 2021-02-18 16:06 | Operative Report (OR) ---
DATE OF PROCEDURE: 02/18/2021. PREOPERATIVE DIAGNOSIS: Ventral hernia. POSTOPERATIVE DIAGNOSIS: Ventral hernia. PROCEDURE: Open repair of ventral hernia with mesh. SURGEON: Luly Bailey MD. SALESFORCE SPECIALIST: Mary Cotton PA-C. ANESTHESIA: General. ESTIMATED BLOOD LOSS: About 10 mL. FINDINGS: Two ventral hernias, size about 2 x 2 cm and another ventral hernia of 3 x 3 cm. COMPLICATIONS: None. INDICATIONS FOR THE PROCEDURE: This is a 80-year-old female who presented to the ED with a 2-day his tory of abdominal pain and the patient had a CT scan diagnosis of ventral hernia causing small-bowel obstruction. The patient was admitted to the hospital overnight and I recommended to do the open rep air of ventral hernia, possibly with mesh. I did talk to the patient about the benefit, risk, altern ate procedure. I indicated the risks may include, but not limited to, such as bleeding, infection, i njury to other organs, hernia recurrence, complications related to mesh, myocardial infarction, DVT, stroke, even . The patient understands. She signed informed consent and I answered all questio ns. DETAILS OF PROCEDURE: After we identified the patient and verified the procedure, we brought the pat ient to the OR, put the patient in the supine position on the OR table. The patient received SCD on bilateral legs to prevent DVT. Also, patient received 2 grams of Ancef IV for prophylactic antibioti c. The patient received general anesthesia without difficulty. Also, patient received a Borrero cece ter insertion. The abdomen was prepped and draped in routine sterile fashion. After timeout, I made an incision on the ventral hernia. The incision length about 8 cm. Then, we dissected the subcutane ous layer, mobilized the hernia sac and then we opened the hernia sac. There was some scar adhesed t o small bowel. We lysed the scar from the small bowel and then we returned all the hernia contents a nd small bowel back to the abdominal cavity. No significant dilatation on the small bowel at this mo ment. Then, we resected the hernia sac and sent to pathology. However, we found the patient had 2 h ernias, one hernia size about 2 x 2 cm, another hernia size about 3 x 3 cm. The 2 hernias connected to each other and at this moment, we decided to use an 8 cm round mesh to repair the hernia. We used 0 Ethibond, sutured the fascia to the hernia interruptedly in 360 degrees. Then, we tied each sutur e one by one, the hernia closed by the mesh. The mesh seated nicely, no tension. Hemostasis obtaine d, then I closed the subcutaneous layer by using 2-0 Vicryl continuous running, closed skin by using staple. Then, we put the dressing on. The patient tolerated the procedure well. All instrument, ne edle and sponge counts were correct x2 at the end of the case. [facility] in [facility] condition. The specimen was sent to pathology. After the procedure, I did talk to the patient's family member about the OR finding and the procedure we did, and she understands. The underwriting assistant, Mary, is necessary for this procedure. Her role is in retraction and exposure. Job ID: [id number]
--- NOTE | 2021-02-18 20:01 | Hospitalist Progress Note ---
Date of Service February 18, 2021 Assessment & Plan (1) Ventral hernia with bowel obstruction: Plan: Hospitalized for pain control and surgical intervention Antiemetics on board as needed Patient is s/p ventral herniorrhaphy with meshPOD #0 She has been started on clear liquids by general surgery; however, would hold off if patient still complaining of nausea or abdominal pain Will obtain follow-up KUB in the a.m. When patient more awake and alert, encouraged to ambulate We will reassess in the a.m. (2) Small bowel obstruction: Plan: See above (3) Abnormal LFTs: Plan: Total bilirubin and LFTs were completely normal upon presentation but have risen slightly (TB 1.5, AST/ALT 630 and 681 respectively) Exact etiology uncertain at this time We will hold statin We will trend and work-up further if persistent (which would include right upper quadrant ultrasound and follow-up labs (4) Hyperlipidemia: Plan: Hold atorvastatin while n.p.o. (5) Anxiety with depression: Plan: Hold bupropion while n.p.o. (6) Hypothyroidism (acquired): Plan: Hold levothyroxine while n.p.o. (7) Hypertension: Plan: Hold lisinopril while n.p.o. Admission and Anticipated Discharge Date Admission Date: February 17, 2021 Subjective Patient seen on daily rounds today. She is just coming back from general surgery and history is limited. She is complaining of mild nausea but no vomiting. Denies abdominal pain. She was hospitalized for a small bowel obstruction related to a ventral hernia Review of Systems Review of Systems: Limited. Patient just coming back from the operating room. Somnolent but arousable. Reports nausea but currently denies abdominal pain or vomiting Physical Exam Physical Exam: General: Resting comfortably in her hospital bed. Somnolent but arousable. Does not appear ill or toxic HEENT: Head is AT/NC buccal mucosa is moist and pink Neck: No JVD. Negative hepatojugular reflex Cardiac: RRR without M/G/R Lungs: CTA without W/R/R Abdomen: Hypoactive X4 abdominal binder in place Extremities: No peripheral clubbing cyanosis or edema Neuro: A&O X4 cranial nerves II through XII are grossly intact no focal neuro deficits Skin: No obvious skin lesions or rashes Psych: Appropriate affect pleasant and cooperative Results & Data Results & Data ([facility]) Vital Signs (Past 12 Hours) Vital Signs Temp Pulse Resp BP BP Pulse Ox 02/18/21 19:21 82 20 149/74 H 99 02/18/21 19:02 36.9 C 75 14 128/73 96 02/18/21 16:00 36.4 C L 66 16 124/81 94 02/18/21 15:00 36.4 C L 76 17 121/79 95 02/18/21 14:00 36.4 C L 74 16 133/70 95 02/18/21 13:30 36.4 C L 70 16 122/71 93 02/18/21 13:00 36.4 C L 73 17 132/62 93 02/18/21 12:50 36.6 C 78 16 130/81 98 02/18/21 12:40 80 16 127/67 99 02/18/21 12:30 80 18 133/65 99 02/18/21 12:20 36.6 C 78 18 140/65 95 02/18/21 10:28 36.9 C 74 18 132/68 95 02/18/21 10:14 36.7 C 75 18 131/75 98 Laboratory Results 02/18/21 07:15 02/18/21 07:15 PG Care Time/CCT Total # of Minutes Spent Total Time Spent with Patient: Total time spent is greater than 50% in coordination of care (as documented) at patient's floor/unit and/or counseling patient: Coding Level of Care Code 34373 Subseq Hosp Care Lvl 1 Diagnoses Ventral hernia with bowel obstruction K43.6 Small bowel obstruction K56.609 Hyperlipidemia E78.5 Anxiety with depression F41.8 Hypothyroidism (acquired) E03.9 Hypertension I10 Abnormal LFTs R79.89
[2021-02-18] MEDS: OMEGA-3 (PURIFIED FISH OIL) 1 GM CAP PO SCH (21:13)
[2021-02-18] MEDS: CALCIUM 600MG + VIT D 400 IU TAB PO SCH (21:13)
[2021-02-18] MEDS ORDERED: MELATONIN 3 MG TAB PO PRN (21:29)
[2021-02-19] MEDS ORDERED: GABAPENTIN 100 MG CAP PO ONE (00:12)
[2021-02-19] MEDS: NSS + 20MEQ KCL 20 MEQ/1,000 ML BAG IV SCH (02:03)
[2021-02-19] MEDS: KETOROLAC TROMETHAMINE 15 MG/ML VIAL IV PRN (06:11)
[2021-02-19] MEDS ORDERED: LEVOTHYROXINE SODIUM 75 MCG TABLET PO SCH (06:30)
[2021-02-19 08:03] LABS: Eosinophils # (auto) 0.01 K/uL (0-0.5); Eosinophils % (auto) 0.1 %; Hematocrit (blood only) 33.2 % (37-47); Hemoglobin 10.4 g/dL (12.0-16.0); Immature Granulocytes # (auto) 0.02 K/uL (0.00-0.02); Immature Granulocytes % (auto) 0.2 %; Lymphocytes # (auto) 1.39 K/uL (1.2-3.4); Lymphocytes % (auto) 17.1 %; Mean Corpuscular Hemoglobin 29.1 pg (25-34); Mean Corpuscular Hgb Conc 31.3 g/dL (32-36); Mean Platelet Volume 9.1 fL (7.4-10.4); Monocytes # (auto) 0.69 K/uL (0.11-0.59); Monocytes % (auto) 8.5 %; Neutrophils % (auto) 74.1 %; Platelet Count 204 K/uL (130-400); RDW Coefficient of Variation 13.9 % (11.5-14.5); RDW Standard Deviation 47.8 fL (36.4-46.3); Red Blood Count 3.57 M/uL (4.2-5.4); White Blood Count 8.11 K/uL (4.8-10.8)
[2021-02-19 08:41] LABS: Albumin Level 2.5 gm/dl (3.4-5.0); BUN Creatinine Ratio 20.9 (10-20); Creatinine Clr Calc Pharmacy 51.8 ml/min; Est GFR (African American) 76.6 ml/min; Est GFR (Non-African American) 66.1 ml/min; Potassium 4.9 mmol/L (3.5-5.1)
[2021-02-19] MEDS ORDERED: CEROVITE ADV FORMULA TAB PO SCH (09:00)
[2021-02-19 09:22] LABS: Albumin Globulin Ratio 0.7 (0.9-2); Bilirubin,Total 0.6 mg/dl (0.2-1); Globulin 3.7 gm/dl (2.5-4.0); Total Protein 6.2 gm/dl (6.4-8.2)
[2021-02-19] MEDS: MULTIVITAMIN TAB PO SCH (09:37)
[2021-02-19] MEDS: CALCIUM 600MG + VIT D 400 IU TAB PO SCH (09:37)
[2021-02-19] MEDS: OMEGA-3 (PURIFIED FISH OIL) 1 GM CAP PO SCH (09:37)
[2021-02-19] MEDS: buPROPion XL 150 MG TABCR PO SCH (09:37)
[2021-02-19] MEDS: lisinopril 10 MG TAB PO SCH (09:38)
--- NOTE | 2021-02-19 09:42 | Surgery Progress Note ---
Date of Service February 19, 2021 Assessment & Plan (1) Small bowel obstruction: (2) Ventral hernia with bowel obstruction: Plan: see above Plan: POD# 1 s/p open ventral hernia repair with mesh -afebrile, vitals stable - postop pain controlled - + gas, no bowel movement Plan: Can advanced to full liquids will need to transition to oral medication for pain control, Percocet is ordered as needed. LFTs improved could alternate extra strength Tylenol and Ibuprofen as needed encouraged ambulation incentive spirometry scds possibly discharge this afternoon if tolerates advanced diet and pain continues to be controlled Rounded with Dr. Bailey and patient doing well, okay for discharge toay. Discharge instructions reviewed and will be provided in chart. Follow-up clinic in [address] Bailey has seen patient and agrees with above. Admission and Anticipated Discharge Date Admission Date: February 17, 2021 Subjective feeling great this morning pain controlled with Toradol No nausea or vomiting tolerating clear liquids, would like something more for breakfast passing small amount of gas, no bowel movement no chest pain or shortness of breath Physical Exam Constitutional: WD/WN, vitals as above no acute distress and not ill appearing Respiratory: normal respiratory effort, lungs clear to auscultation Cardiovascular: RRR, no murmur, no edema Gastrointestinal (Abdomen): Inspection/Auscultation: abdomen normal to inspection, + abdominal surgical scar (RUQ cholecystectomy scar, midline laparotomy scar), + abdominal surgical incision (covered with clean/dry dressing ) and + hypoactive bowel sounds; abdomen not distended and + abnormal bowel sounds Percussion/Palpation: + abdomen tender (at midline incision) and abdomen soft; no guarding and abdomen not rigid Skin: no rashes, warm and dry Psychiatric: A+Ox3, euthymic affect Results & Data ([facility]) Vital Signs (Past 12 Hours) Vital Signs Temp Pulse Resp BP BP Pulse Ox 02/19/21 08:01 36.4 C L 63 16 106/59 L 98 02/19/21 03:37 36.6 C 60 16 98/60 L 95 02/18/21 22:50 36.6 C 78 16 103/64 95 Laboratory Results 02/19/21 02/19/21 02/18/21 Range/Units 07:49 07:49 14:13 WBC 8.11 (4.8-10.8) K/uL RBC 3.57 L (4.2-5.4) M/uL Hgb 10.4 L (12.0-16.0) g/dL Hct 33.2 L (37-47) % MCV 93.0 (80-100) fL MCH 29.1 (25-34) pg MCHC 31.3 L (32-36) g/dL RDW Std Deviation 47.8 H (36.4-46.3) fL RDW Coeff of Lonnie 13.9 (11.5-14.5) % Plt Count 204 (130-400) K/uL MPV 9.1 (7.4-10.4) fL Immature Gran % (Auto) 0.2 % Neut % (Auto) 74.1 % Lymph % (Auto) 17.1 % [place] % (Auto) 8.5 % Eos % (Auto) 0.1 % Baso % (Auto) 0.0 % Neut # (Auto) 6.00 (1.4-6.5) K/uL Lymph # (Auto) 1.39 (1.2-3.4) K/uL [place] # (Auto) 0.69 H (0.11-0.59) K/uL Eos # (Auto) 0.01 (0-0.5) K/uL Baso # (Auto) 0.00 (0-0.2) K/uL Immature Gran # (Auto) 0.02 (0.00-0.02) K/uL Sodium 139 (136-145) mmol/L Potassium 4.9 (3.5-5.1) mmol/L Chloride 110 H (98-107) mmol/L Carbon Dioxide 22 (21-32) mmol/L Anion Gap 7.0 (3-11) BUN 18 (7-18) mg/dl Creatinine 0.84 (0.6-1.2) mg/dl Est Cr Clr Drug Dosing 51.8 ml/min Est GFR ( Amer) 76.6 ml/min Est GFR (Non-Af Amer) 66.1 ml/min BUN/Creatinine Ratio 20.9 H (10-20) Glucose 120 H (70-99) mg/dl Calcium 9.0 (8.5-10.1) mg/dl Magnesium 2.0 (1.8-2.4) mg/dl Total Bilirubin 0.6 D (0.2-1) mg/dl AST 128 H (15-37) U/L ALT 308 H (12-78) Alkaline Phosphatase 187 H D (45-117) U/L Total Protein 6.2 L (6.4-8.2) gm/dl Albumin 2.5 L (3.4-5.0) gm/dl Globulin 3.7 (2.5-4.0) gm/dl Albumin/Globulin Ratio 0.7 L (0.9-2) Lipase 108 (73-393) U/L
[2021-02-19] MEDS ORDERED: traMADol HCL 50 MG TABLET PO PRN (11:12)
--- NOTE | 2021-02-19 18:04 | Discharge Summary ---
Date of Service February 19, 2021 Admission HPI Per Admitting Provider The patient is a 80-year-old female with past medical history including small bowel obstruction, hyperlipidemia, anxiety with depression, hypothyroidism, and hypertension. She presents to the emergency department after 3 days of abdominal pain, nausea, vomiting. Her last bowel movement was 3 days ago. She reports her symptoms are similar to her previous small bowel obstruction that occurred about 3 to 4 years ago. Patient had a CT performed at [facility] earlier today, which showed a small bowel obstruction proximal to a lower ventral hernia consistent with partial SBO. Principal Diagnosis 1. Small bowel obstruction secondary to ventral hernia 2. Ventral hernias/p ventral herniorrhaphy 3. Abnormal LFTsuncertain etiology but transient and resolved Discharge Exam General: Resting comfortably in her bedside chair. Does not appear ill or toxic. NAD. HEENT: Head is AT/NC buccal mucosa is moist and pink Neck: No JVD. Negative hepatojugular reflex Cardiac: RRR without M/G/R Lungs: CTA without W/R/R Abdomen: Normal active x4. Abdominal binder in place. Abdomen soft and nontender in all quadrants Extremities: No peripheral clubbing cyanosis or edema Neuro: A&O X4 cranial nerves II through XII are grossly intact no focal neuro deficits Skin: No obvious skin lesions or rashes Psych: Appropriate affect pleasant and cooperative Discharge Data Allergies Allergy/AdvReac Type Severity Reaction Status Date / Time No Known Allergies Allergy Verified 08/16/17 05:49 Consultations 02/17/21 20:45 ED Decision to Admit Stat Procedures Performed Operation Date: 02/18/21 11:40 Actual Procedures p Ventral Hernia Repair with Mesh(Not Applicable) - Luly Bailey MD Hospital Course (1) Ventral hernia with bowel obstruction: Initially went to emergency department at [facility]. Had a CT scan performed but while awaiting to be roomed in the emergency department, left. Reports she was waiting for a lengthy period of time and was in the waiting room with multiple sick people Apparently radiology called patient's PCP as she had left the emergency department. She was called by her PCP and told to go back to the emergency department because she had a small bowel obstruction secondary to a ventral hernia Patient refused to go back to [place] due to the weight and tried our emergency department She was subsequently hospitalized. Initially made n.p.o. and general surgery c onsulted Antiemetics and IV pain medication on board as needed Underwent ventral herniorrhaphy with mesh insertion on 02/18. Had an uneventful perioperative course Postoperatively, started on clear liquids by general surgery and this was advanced to a full liquid diet When seen by myself, denies any abdominal pain, nausea or vomiting. Is passing flatus and tolerating oral intake At this point time, there are no medical contraindications to proceeding with discharged home. Her pain is well controlled. General surgery is on board with this plan Would advise a full liquid diet today and further advance to low fiber as tolerated Follow-up with general surgery as outlined by them Given transient elevated LFTs, would avoid Tylenol/Tylenol related products. Prescribed Ultram for pain (2) Small bowel obstruction: See above (3) Abnormal LFTs: Total bilirubin and LFTs were completely normal upon presentation but have risen slightly (TB 1.5, AST/ALT 630 and 681 respectively) Exact etiology unclear Only transient elevation as completely normal on POD #1 (0 point 6/128/300) May benefit from a statin drug holiday Recommend PCP obtain follow-up labs to trend Patient should avoid Tylenol and Tylenol related products along with alcohol (4) Hyperlipidemia: statin held while in house (5) Anxiety with depression: Held bupropion while NPO but okay to resume (6) Hypothyroidism (acquired): Held levothyroxine while n.p.o. but okay to resume (7) Hypertension: Held lisinopril while n.p.o. but okay to resume Total Time Total Time Spent Total Time Spent (In Minutes): 60 min Discharge Plan Discharge Items Patient Disposition: Home - Self-Care Reason For Visit: SBO Discharge Diagnosis: 1. Small Bowel Obstruction (secondary to Hernia) 2. Ventral hernia- s/p repaired Activity: As commented below Activity Comment: as tolerated Non-emergency contact: Primary Care Provider and Specialist Call non-emergency contact if: you have any medication questions, your pain is not controlled and your temperature is above 101 Follow-up/Referrals: Marai Del Rosario Chery M.D. [Primary Care Provider] - 02/25/21 11:15 am Diet: Full liquid Diet Comment: full liquid diet today-- advance to low fiber as tolerated Addtl Attending Provider Instructions: - you were hospitalized with a bowel obstruction secondary to the ventral hernia - the hernia has since been repaired - you have no abdominal pain and your passing flatus (which are all good signs that this obstruction is cleared) - would advise maintaining a full liquids diet today and further advance to low fiber as tolerated - use the ultram as needed for pain - your liver function studies were slightly elevated yesterday but have since normalized. Would advise avoiding tylenol and tylenol related products for the next week - follow up with the surgeon as directed by them - continue to use the incentive spirometer - follow recommendations as outlined below by your surgeon Addtl Scrap Drop Engineer Provider Instructions: Post-Surgical ~Discharge Instructions Activity Recommendations: - lifting limitation: (20 pounds for 4 weeks), - exercise/sex/sports limit: (nonstrenuous for 2 weeks), - driving or machine use limit: (none for 1 week, until pain free, or no longer taking narcotic pain medication), - Shower/bathe limit: (july shower beginning Wednesday) Diet: - Resume previous diet SPECIAL CARE INSTRUCTIONS: - May shower on Wednesday, sponge bath and wash hair in meantime. On Wednesday, remove dressing and shower. Let water run over area and pat dry. - Surgical laron will be removed in office in a few weeks - Wear abdominal binder daily for support - Call the surgeon's office with any questions or concerns - - (ex. temperature higher than 101 degrees F, excessive bleeding or pain). MEDICATIONS: - Resume previous medications unless instructed otherwise by your surgeon. - May take extra strength Ibuprofen as needed for mild to moderate pain - Ibuprofen 600 mg every 6 hours as needed (take with food and limit duration of use) - Avoid Tylenol as your liver enzymes were elevated but improving. - Tramadol as needed for moderate to severe pain. FOLLOW UP VISIT: - If not already scheduled, please call the office to schedule a two week follow-up appointment. Office number Pending Studies at Discharge: No Stand-Alone Forms: [facility] [place] Medications and DC Order Prescriptions: New tramadol [Ultram] 50 mg tablet 50 mg PO Q8H PRN (Reason: pain) Qty: 30 RF: 0 Continued multivitamin Tablet 1 tab PO DAILY RF: 0 atorvastatin 10 mg tablet 10 mg PO DAILY RF: 0 levothyroxine [Synthroid] 75 mcg tablet 75 mcg PO DAILY RF: 0 lisinopril 10 mg tablet 10 mg PO DAILY RF: 0 zinc 50 mg Tablet 50 mg PO DAILY RF: 0 multivitamin with minerals Tablet 1 tab PO DAILY RF: 0 bupropion HCl 150 mg tablet extended release 24 hr 150 mg PO DAILY RF: 0 PreserVision AREDS [id number] Capsule 1 cap PO DAILY RF: 0 calcium carbonate-vitamin D3 500 mg-3.125 mcg (125 unit) Tablet 1 tab PO BID RF: 0 omega [id number] oil [Fish Oil] 60-90-500 mg Capsule 1 cap PO BID RF: 0 Discharge Orders: Discharge Order (Routine); Ordered 02/19/21 Ordered By: Trish Mendoza Admission Data Admit Date/Time: 02/17/21 21:14 Attending Provider: Elmo Garrett Admit Provider: Allen Chanel Primary Care Provider: Maria Del Rosario Chery Other Providers: Allen Chanel Other Interventions: Discharge Summary Assessment (RN) Last Done: 02/19/21 13:36 Supervising Physician Co-Signing Physician Notes Patient seen and examined on the day of discharge. I agree with the discharge summary by Trish WEBSTER. I have reviewed the chart including labs, imaging and plans for discharge. patient recovering from ventral hernia surgery, cleared by general surgery for discharge - SBO due to ventral hernia, s/p reduction of hernia and repair of ventral defect pain controlled, tolerating diet per surgery orders clear for discharge, discharge instructions provided by surgery Coding Level of Care Code D/C DAY MANAGEMENT >30 MINS Diagnoses Ventral hernia with bowel obstruction K43.6 Small bowel obstruction K56.609 Abnormal LFTs R79.89 Hyperlipidemia E78.5 Anxiety with depression F41.8 Hypothyroidism (acquired) E03.9 Hypertension I10
== END 2021-02-19 14:20 | disposition home or self-care (01) | DRG 354 ==
LOC: ED 18:58 → 3N 21:14 → SUATTDRO 21:14 → 3N 02-18 00:34
DX: I10 Essential (primary) hypertension; Z79.890 Hormone replacement therapy; K43.6 Other and unspecified ventral hernia with obstruction, without gangrene; E83.51 Hypocalcemia; E78.5 Hyperlipidemia, unspecified; R17 Unspecified jaundice; E03.9 Hypothyroidism, unspecified; Z87.19 Personal history of other diseases of the digestive system; R74.01 Elevation of levels of liver transaminase levels; F41.8 Other specified anxiety disorders; Z79.899 Other long term (current) drug therapy